=== PATIENT | male | born 1995 | race Caucasian/White ===

== ENCOUNTER 2018-03-07 21:46 | Emergency (ER) | payer SELFPAY ==
--- NOTE | 2018-03-07 23:10 | ER ---
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 Patient reports he was concerned because he has been having intermittent dizziness for the past month. Transition of care: patient was not received from another setting of care. Onset of symptoms was March 07, 2018. Risk Assessment: Do you want to hurt yourself or someone else? Patient reports no desire to harm self or others. Initial Sepsis Screen: Does the patient meet any 2 criteria? No. Patient's initial sepsis screen is negative. Does the patient have a suspected source of infection? No. Patient's initial sepsis screen is negative. Care prior to arrival: None. 21:52 Method Of Arrival: Ambulatory aj 21:52 Acuity: NEELIMA 3 aj Triage Assessment: 21:54 General: Appears in no apparent distress. comfortable, Behavior is calm, cooperative, aj appropriate for age. Pain: Denies pain. Neuro: Level of Consciousness is awake, alert, obeys commands, Oriented to person, place, time, situation, Appropriate for age. Neuro: Reports dizziness, intermittent. Respiratory: Airway is patent Trachea midline Respiratory effort is even, unlabored, Respiratory pattern is regular, symmetrical. Derm: Skin is intact, is healthy with good turgor, Skin is pink, warm \T\ dry. normal. Historical: - Allergies: 21:54 No Known Allergies; aj - Home Meds: 21:54 None [Active]; aj - PMHx: 21:54 Kidney stones; aj - PSHx: 21:54 None; aj - Immunization history:: Adult Immunizations up to date. - Social history:: Smoking status: Patient/guardian denies using tobacco. - Ebola Screening: : Patient negative for fever greater than or equal to 101.5 degrees Fahrenheit, and additional compatible Ebola Virus Disease symptoms Patient denies exposure to infectious person Patient denies travel to an Ebola-affected area in the 21 days before illness onset No symptoms or risks identified at this time. Screenin:08 Abuse screen: Denies threats or abuse. Denies injuries from another. Nutritional rv screening: No deficits noted. Tuberculosis screening: No symptoms or risk factors identified. Fall Risk None identified. Assessment: 22:08 General: Appears in no apparent distress. comfortable, Behavior is calm, cooperative. rv Pain: Denies pain. Neuro: Level of Consciousness is awake, alert, obeys commands, Oriented to person, place, time, situation. Cardiovascular: Capillary refill < 3 seconds. Respiratory: Airway is patent. GI: No signs and/or symptoms were reported involving the gastrointestinal system. : No signs and/or symptoms were reported regarding the genitourinary system. EENT: No signs and/or symptoms were reported regarding the EENT system. Derm: Skin is intact. 22:48 Reassessment: Patient appears in no apparent distress at this time. Patient is alert, rv oriented x 3, equal unlabored respirations, skin warm/dry/pink. PATIENT IS COMFORTABLE LYING ON BED. Vital Signs: 21:54 BP 159 / 101; Pulse 76; Resp 16; Temp 98.9; Pulse Ox 98% on R/A; Weight 79.38 kg; aj Height 5 ft. 1 in. (154.94 cm); 22:13 BP 145 / 85 Supine; Pulse 79; rv 22:13 BP 145 / 94 Sitting; Pulse 79; rv 22:13 BP 136 / 95 Standing; Pulse 86; rv 22:48 BP 121 / 86; Pulse 74; Pulse Ox 98% on R/A; rv 23:04 BP 137 / 101; rv 21:54 Body Mass Index 33.07 (79.38 kg, 154.94 cm) aj ED Course: 21:52 Patient arrived in ED. aj 21:54 Triage completed. aj 21:54 Arm band placed on left wrist. Patient placed in an exam room. aj 21:59 Elizabeth Solitario FNP-C is [facility]. snw 21:59 Brandon Lin MD is Attending Physician. snw 22:08 Patient has correct armband on for positive identification. Bed in low position. Call rv light in reach. Side rails up X 1. Adult w/ patient. Pulse ox on. NIBP on. 23:23 No provider procedures requiring assistance completed. Patient did not have IV access rv during this emergency room visit. Administered Medications: No medications were administered Outcome: 23:10 Discharge ordered by MD. stroud 23:23 Discharged to home ambulatory. rv 23:23 Condition: good 23:23 Discharge instructions given to patient, Instructed on discharge instructions, follow up and referral plans. 23:23 Patient left the ED. rv Signatures: Yoko Julien RN RN Elizabeth Franks, [employer]-C [employer]-Csnw Hemal Ortiz RN RN rv Corrections: (The following items were deleted from the chart) 22:02 21:54 BP 159 / 101; Pulse 76bpm; Resp 76bpm; Pulse Ox 98% RA; Temp 98.9F; 79.38 kg; aj Height 5 ft. 1 in.; BMI: 33.0; aj
--- NOTE | 2018-03-07 23:10 | EDPHYS ---
Physician Documentation [facility] Name: Darrick Alvarenga Age: 22 yrs Sex: Male : 1995 Arrival Date: 03/07/2018 Time: 21:52 Bed 23 Private MD: ED Physician Brandon Lin HPI: 03/08 01:05 This 22 yrs old Male presents to ER via Ambulatory with complaints of High snw Blood Pressure. 01:05 The patient has elevated blood pressure and discovered this at [facility]. Onset: The snw symptoms/episode began/occurred gradually, at an unknown time. Associated signs and symptoms: Pertinent positives: lightheadedness, intermittently. Severity of symptoms: At its worst the blood pressure was moderate. It is unknown whether or not the patient has had similar symptoms in the past. The patient has not recently seen a physician, and does not have an established primary care provider. encouraged to keep BP log, decrease salt, increase fluid intake. Historical: - Allergies: 03/07 21:54 No Known Allergies; aj - Home Meds: 21:54 None [Active]; aj - PMHx: 21:54 Kidney stones; aj - PSHx: 21:54 None; aj - Immunization history:: Adult Immunizations up to date. - Social history:: Smoking status: Patient/guardian denies using tobacco. - Ebola Screening: : Patient negative for fever greater than or equal to 101.5 degrees Fahrenheit, and additional compatible Ebola Virus Disease symptoms Patient denies exposure to infectious person Patient denies travel to an Ebola-affected area in the 21 days before illness onset No symptoms or risks identified at this time. ROS: 03/08 01:03 Constitutional: Negative for fever, chills, and weight loss, Eyes: Negative for injury, snw pain, redness, and discharge, ENT: Negative for injury, pain, and discharge, Neck: Negative for injury, pain, and swelling, Cardiovascular: Negative for chest pain, palpitations, and edema, Respiratory: Negative for shortness of breath, cough, wheezing, and pleuritic chest pain, Abdomen/GI: Negative for abdominal pain, nausea, vomiting, diarrhea, and constipation, Back: Negative for injury and pain, MS/Extremity: Negative for injury and deformity, Skin: Negative for injury, rash, and discoloration. Neuro: Positive for headache. Exam: 01:03 Constitutional: This is a well developed, well nourished patient who is awake, alert, snw and in no acute distress. Head/Face: Normocephalic, atraumatic. Eyes: Pupils equal round and reactive to light, extra-ocular motions intact. Lids and lashes normal. Conjunctiva and sclera are non-icteric and not injected. Cornea within normal limits. Periorbital areas with no swelling, redness, or edema. ENT: Nares patent. No nasal discharge, no septal abnormalities noted. Tympanic membranes are normal and external auditory canals are clear. Oropharynx with no redness, swelling, or masses, exudates, or evidence of obstruction, uvula midline. Mucous membranes moist. Neck: Trachea midline, no thyromegaly or masses palpated, and no cervical lymphadenopathy. Supple, full range of motion without nuchal rigidity, or vertebral point tenderness. No Meningismus. Chest/axilla: Normal chest wall appearance and motion. Nontender with no deformity. No lesions are appreciated. Cardiovascular: Regular rate and rhythm with a normal S1 and S2. No gallops, murmurs, or rubs. Normal PMI, no JVD. No pulse deficits. Respiratory: Lungs have equal breath sounds bilaterally, clear to auscultation and percussion. No rales, rhonchi or wheezes noted. No increased work of breathing, no retractions or nasal flaring. Abdomen/GI: Soft, non-tender, with normal bowel sounds. No distension or tympany. No guarding or rebound. No evidence of tenderness throughout. Back: No spinal tenderness. No costovertebral tenderness. Full range of motion. Skin: Warm, dry with normal turgor. Normal color with no rashes, no lesions, and no evidence of cellulitis. MS/ Extremity: Pulses equal, no cyanosis. Neurovascular intact. Full, normal range of motion. Neuro: Awake and alert, GCS 15, oriented to person, place, time, and situation. Cranial nerves II-XII grossly intact. Motor strength 5/5 in all extremities. Sensory grossly intact. Cerebellar exam normal. Normal gait. Vital Signs: 03/07 21:54 BP 159 / 101; Pulse 76; Resp 16; Temp 98.9; Pulse Ox 98% on R/A; Weight 79.38 kg; aj Height 5 ft. 1 in. (154.94 cm); 22:13 BP 145 / 85 Supine; Pulse 79; rv 22:13 BP 145 / 94 Sitting; Pulse 79; rv 22:13 BP 136 / 95 Standing; Pulse 86; rv 22:48 BP 121 / 86; Pulse 74; Pulse Ox 98% on R/A; rv 23:04 BP 137 / 101; rv 21:54 Body Mass Index 33.07 (79.38 kg, 154.94 cm) aj [facility]: 21:[address] [facility] 03/08 01:04 Data reviewed: vital signs, nurses notes. Data interpreted: Pulse oximetry: on room air snw is 98 %. Interpretation: normal. Counseling: I had a detailed discussion with the patient and/or guardian regarding: the historical points, exam findings, and any diagnostic results supporting the discharge/admit diagnosis, the presence of at least one elevated blood pressure reading (>120/80) during this emergency department visit, the need for outpatient follow up, to return to the emergency department if symptoms worsen or persist or if there are any questions or concerns that arise at home. Special discussion: I have referred the patient to see his PCP for further evaluation of high blood pressure. Based on the history and exam findings, there is no indication for further emergent testing or inpatient evaluation. I discussed with the patient/guardian the need to see the primary care provider for further evaluation of the symptoms. 03/07 22:00 Order name: Orthostatics; Complete Time: 22:13 snw Administered Medications: No medications were administered Disposition: 06:56 Co-signature as Attending Physician, Brandon Lin MD I agree with the assessment and [facility] plan of care. Disposition: 03/07/18 23:10 Discharged to Home. Impression: Essential (primary) hypertension. - Condition is Stable. - Discharge Instructions: Hypertension, How to Take Your Blood Pressure, [id number], DASH Eating Plan, Rehydration, Adult, Managing Your Hypertension. - Work release form, Medication Reconciliation Form, Thank You Letter, Antibiotic Education, Prescription Opioid Use form. - Follow up: Private Physician; When: 1 week; Reason: Recheck today's complaints, Continuance of care, Re-evaluation by your physician. Follow up: Emergency Department; When: As needed; Reason: Worsening of condition. Signatures: Yoko Julien RN RN aj Anderson, Corey, MD MD cha Therrien, Shelly, VETERINARY MEDICINE DOCTOR-C VETERINARY MEDICINE DOCTOR-Csnw Hemal Ortiz, RN RN rv Corrections: (The following items were deleted from the chart) 03/07 23:23 23:10 03/07/2018 23:10 Discharged to Home. Impression: Essential (primary) rv hypertension. Condition is Stable. Forms are Medication Reconciliation Form, Thank You Letter, Antibiotic Education, Prescription Opioid Use. Follow up: Private Physician; When: 1 week; Reason: Recheck today's complaints, Continuance of care, Re-evaluation by your physician. Follow up: Emergency Department; When: As needed; Reason: Worsening of condition. snw
== END 2018-03-07 23:23 | disposition home or self-care (01) ==
LOC: ER 21:46
DX: I10 Essential (primary) hypertension (principal)
CPT/HCPCS: 99283

== ENCOUNTER 2018-11-26 16:00 | Emergency (ER) | payer BC, SELFPAY ==
--- NOTE | 2018-11-26 17:26 | ER ---
Nurse's Notes [facility] Name: Darrick Alvarenga Age: 23 yrs Sex: Male : 1995 Arrival Date: 11/26/2018 Time: 16:06 Bed 30 Private MD: Diagnosis: Pain in right ankle and joints of right foot Presentation: 11/26 16:12 Presenting complaint: Patient states: R ankle pain that began yesterday. Denies injury. ss Pt believes he may have sprained it somehow. Transition of care: patient was not received from another setting of care. Onset of symptoms was November 25, 2018. Risk Assessment: Do you want to hurt yourself or someone else? Patient reports no desire to harm self or others. Initial Sepsis Screen: Does the patient meet any 2 criteria? No. Patient's initial sepsis screen is negative. Does the patient have a suspected source of infection? No. Patient's initial sepsis screen is negative. Care prior to arrival: None. 16:12 Method Of Arrival: Ambulatory ss 16:12 Acuity: NEELIMA 4 ss Historical: - Allergies: 16:13 No Known Allergies; ss - Home Meds: 16:13 None [Active]; ss - PMHx: 16:13 Kidney stones; ss - PSHx: 16:13 None; ss - Immunization history:: Adult Immunizations up to date. - Social history:: Smoking status: Patient/guardian denies using tobacco. - Ebola Screening: : Patient denies exposure to infectious person Patient denies travel to an Ebola-affected area in the 21 days before illness onset. Screenin:41 Abuse screen: Denies threats or abuse. Denies injuries from another. Nutritional mg2 screening: No deficits noted. Tuberculosis screening: No symptoms or risk factors identified. Fall Risk None identified. Assessment: 17:36 General: Appears in no apparent distress. comfortable, Behavior is calm, cooperative. mg2 Pain: Complains of pain in right ankle Pain does not radiate. Pain currently is 2 out of 10 on a pain scale. Quality of pain is described as aching, Pain began gradually, 1 day ago. Is intermittent, Alleviated by medications, rest, cold application, Aggravated by increased activity, repositioning, weight bearing. Neuro: Level of Consciousness is awake, alert, obeys commands, Oriented to person, place, time, situation. Cardiovascular: Capillary refill < 3 seconds Patient's skin is warm and dry. Respiratory: Airway is patent Respiratory effort is even, unlabored, Respiratory pattern is regular, symmetrical. GI: No signs and/or symptoms were reported involving the gastrointestinal system. : No signs and/or symptoms were reported regarding the genitourinary system. EENT: No signs and/or symptoms were reported regarding the EENT system. Derm: Skin is intact, is healthy with good turgor, Skin is pink, warm \T\ dry. normal. Musculoskeletal: Circulation, motion, and sensation intact. Capillary refill < 3 seconds, Reports pain in right leg and right ankle. Injury Description: sprain. Vital Signs: 16:13 BP 130 / 85; Pulse 90; Resp 15; Temp 99.0(TE); Pulse Ox 99% on R/A; Weight 81.65 kg; ss Height 5 ft. 7 in. (170.18 cm); Pain 2/10; 17:42 BP 129 / 78; Pulse 89; Resp 18; Temp 98.9; Pulse Ox 100% on R/A; Pain 2/10; mg2 16:13 Body Mass Index 28.19 (81.65 kg, 170.18 cm) ED Course: 16:06 Patient arrived in ED. mr 16:13 Triage completed. ss 16:13 Arm band placed on left wrist. ss 17:02 Shanel Bedoya [facility]-C [facility]. kb 17:02 Brandon Lin MD is Attending Physician. kb 17:23 Ankle Right 2 View XRAY In Process Unspecified. EDMS 17:25 Anthony Lazcano, MARIA ELENA is Primary Nurse. mg2 17:42 Patient has correct armband on for positive identification. Door closed. Warm blanket mg2 given. 17:42 No provider procedures requiring assistance completed. mg2 17:43 Patient did not have IV access during this emergency room visit. mg2 Administered Medications: No medications were administered Outcome: 17:25 Discharge ordered by . kb 17:42 Discharged to home ambulatory, with family. mg2 17:42 Condition: stable 17:42 Discharge instructions given to patient, family, Instructed on discharge instructions, follow up and referral plans. medication usage, Demonstrated understanding of instructions, follow-up care, medications, Prescriptions given X 1. 17:43 Patient left the ED. mg2 Signatures: Dispatcher [employer] EDMS Shanel Bedoya FNP-C LINE DRIVER-Ckb Zoraida Phillips mr Michelle Shaver, MARIA ELENA RN ss Anthony Lazcano RN RN mg2 Kirstie Hammond Corrections: (The following items were deleted from the chart) 17:25 17:25 Radiology exam delayed due to test not completed at this time. loretta burgos
--- NOTE | 2018-11-26 17:26 | EDPHYS ---
Physician Documentation [facility] Name: Darrick Alvarenga Age: 23 yrs Sex: Male : 1995 Arrival Date: 11/26/2018 Time: 16:06 Bed 30 Private MD: ED Physician Brandon Lin HPI: 11/26 17:10 This 23 yrs old Male presents to ER via Ambulatory with complaints of Ankle kb pain. 17:10 The patient presents with pain, that is acute, swelling. The complaints affect the kb right ankle. Onset: The symptoms/episode began/occurred yesterday. Context: The patient can fully bear weight on the affected extremity. the patient is able to ambulate. Associated signs and symptoms: Pertinent positives: swelling, Pertinent negatives: calf tenderness, fever, nausea, numbness, rash, tingling, vomiting, warmth, weakness. Modifying factors: The symptoms are alleviated by nothing, the symptoms are aggravated by nothing. Severity of symptoms: At their worst the symptoms were moderate, in the emergency department the symptoms are unchanged. The patient has not experienced similar symptoms in the past. The patient has not recently seen a physician. Pt reports he was at a [employer] on Monday, woke up on Monday with swelling to lateral right ankle. STates the swelling is better, but still having pain. Unknown injury. Historical: - Allergies: 16:13 No Known Allergies; ss - Home Meds: 16:13 None [Active]; ss - PMHx: 16:13 Kidney stones; ss - PSHx: 16:13 None; ss - Immunization history:: Adult Immunizations up to date. - Social history:: Smoking status: Patient/guardian denies using tobacco. - Ebola Screening: : Patient denies exposure to infectious person Patient denies travel to an Ebola-affected area in the 21 days before illness onset. ROS: 17:10 Constitutional: Negative for fever, chills, and weight loss, Cardiovascular: Negative kb for chest pain, palpitations, and edema, Respiratory: Negative for shortness of breath, cough, wheezing, and pleuritic chest pain, Abdomen/GI: Negative for abdominal pain, nausea, vomiting, diarrhea, and constipation, Skin: Negative for injury, rash, and discoloration, Neuro: Negative for headache, weakness, numbness, tingling, and seizure. 17:10 MS/extremity: Positive for pain, of the right ankle. Exam: 17:10 Constitutional: This is a well developed, well nourished patient who is awake, alert, kb and in no acute distress. Head/Face: Normocephalic, atraumatic. Chest/axilla: Normal chest wall appearance and motion. Nontender with no deformity. No lesions are appreciated. Cardiovascular: Regular rate and rhythm with a normal S1 and S2. No gallops, murmurs, or rubs. Normal PMI, no JVD. No pulse deficits. Respiratory: Lungs have equal breath sounds bilaterally, clear to auscultation and percussion. No rales, rhonchi or wheezes noted. No increased work of breathing, no retractions or nasal flaring. Abdomen/GI: Soft, non-tender, with normal bowel sounds. No distension or tympany. No guarding or rebound. No evidence of tenderness throughout. Skin: Warm, dry with normal turgor. Normal color with no rashes, no lesions, and no evidence of cellulitis. MS/ Extremity: Pulses equal, no cyanosis. Neurovascular intact. Full, normal range of motion. Neuro: Awake and alert, GCS 15, oriented to person, place, time, and situation. Cranial nerves II-XII grossly intact. Motor strength 5/5 in all extremities. Sensory grossly intact. Cerebellar exam normal. Normal gait. Vital Signs: 16:13 BP 130 / 85; Pulse 90; Resp 15; Temp 99.0(TE); Pulse Ox 99% on R/A; Weight 81.65 kg; ss Height 5 ft. 7 in. (170.18 cm); Pain 2/10; 17:42 BP 129 / 78; Pulse 89; Resp 18; Temp 98.9; Pulse Ox 100% on R/A; Pain 2/10; mg2 16:13 Body Mass Index 28.19 (81.65 kg, 170.18 cm) ss MDM: 17:02 Patient medically screened. kb 17:06 Data reviewed: vital signs, nurses notes. Data interpreted: Pulse oximetry: on room air kb is 99 %. Interpretation: normal. 17:10 Counseling: I had a detailed discussion with the patient and/or guardian regarding: the kb historical points, exam findings, and any diagnostic results supporting the discharge/admit diagnosis, radiology results, the need for outpatient follow up, a orthopedic surgeon, to return to the emergency department if symptoms worsen or persist or if there are any questions or concerns that arise at home. 11/26 17:03 Order name: Ankle Right 2 View XRAY; Complete Time: 09:55 kb Administered Medications: No medications were administered Disposition: 11/27 07:03 Co-signature as Attending Physician, Brandon Lin MD I agree with the assessment and carmel plan of care. Disposition: 11/26/18 17:25 Discharged to Home. Impression: Pain in right ankle and joints of right foot. - Condition is Stable. - Discharge Instructions: Ankle Sprain, [id number]. - Prescriptions for Diclofenac Sodium 75 mg Oral Tablet, Delayed Release (E.C.) - take 1 tablet by ORAL route 2 times per day As needed; 30 tablet. - Work release form, Medication Reconciliation Form, Thank You Letter, Antibiotic Education, Prescription Opioid Use form. - Follow up: Emergency Department; When: As needed; Reason: Worsening of condition. Follow up: Private Physician; When: 2 - 3 days; Reason: Recheck today's complaints, Continuance of care, Re-evaluation by your physician. Signatures: Dispatcher [employer] EDMS Shanel Bedoya, SPLICING TECHNICIAN-C SPLICING TECHNICIAN-Brandon Martinez MD MD cha Smirch, Shelby, RN RN Anthony Lazcano RN RN mg2 Corrections: (The following items were deleted from the chart) 11/26 17:43 17:25 11/26/2018 17:25 Discharged to Home. Impression: Pain in right ankle and joints mg2 of right foot. Condition is Stable. Forms are Medication Reconciliation Form, Thank You Letter, Antibiotic Education, Prescription Opioid Use. Follow up: Emergency Department; When: As needed; Reason: Worsening of condition. Follow up: Private Physician; When: 2 - 3 days; Reason: Recheck today's complaints, Continuance of care, Re-evaluation by your physician. kb
--- NOTE | 2018-11-26 17:32 | RAD REPORT ---
EXAM DESCRIPTION: RAD - Ankle Right 2 View - 11/26/2018 5:23 pm CLINICAL HISTORY: Right ankle pain, twisting injury COMPARISON: None. FINDINGS: No fracture, dislocation or periosteal reaction. No joint effusion seen. No joint space na rrowing. No soft tissue abnormality. IMPRESSION: Negative right ankle
== END 2018-11-26 17:43 | disposition home or self-care (01) ==
LOC: ER 16:00
DX: M25.571 Pain in right ankle and joints of right foot (principal)
CPT/HCPCS: 99283

== ENCOUNTER 2019-05-02 21:00 | Emergency (ER) | payer BC, SELFPAY ==
[2019-05-02] MEDS ORDERED: PROMETHAZINE 25 MG/ML VIAL ONE (21:47)
[2019-05-02] MEDS ORDERED: NA CHLORIDE 0.9% 1,000 ML ONE ×2 (21:47→22:27)
[2019-05-02 21:52] LABS: Absolute Lymphocytes (CBC) 0.4 K/uL (0.7-4.9); Basophils % 0.2 % (0-1.3); Hematocrit 44.6 % (39.6-49.0); Lymphocytes % 2.8 % (15.3-44.8); RBC Red Blood Cell Count 4.84 M/uL (4.33-5.43)
[2019-05-02 21:57] LABS: Potassium 3.7 mmol/L (3.5-5.1)
[2019-05-02 22:40] LABS: Urine Blood TRACE (NEG); Urine Glucose NEGATIVE (NEG); Urine Protein TRACE (NEG); Urine Specific Gravity >1.030 (1.005-1.030); Urine pH 5.5 (5.0-7.0)
--- NOTE | 2019-05-02 23:23 | EDPHYS ---
Physician Documentation [facility] Name: Darrick Alvarenga Age: 24 yrs Sex: Male : 1995 Arrival Date: 05/02/2019 Time: 21:03 Bed 26 Private MD: ED Physician Jerome Tucker HPI: 05/02 21:18 This 24 yrs old Male presents to ER via Ambulatory with complaints of snw Nausea/Vomiting, Dizziness. 21:18 The patient presents to the emergency department with nausea, vomiting, 40 times today. snw Onset: The symptoms/episode began/occurred suddenly, at 10:00. Possible causes: sick contacts, by family, children. Associated signs and symptoms: Pertinent positives: nausea, vomiting, Pertinent negatives: diarrhea, dysuria, fever. Severity of symptoms: At their worst the symptoms were moderate severe in the emergency department the symptoms have improved. The patient has not experienced similar symptoms in the past. The patient has not recently seen a physician. pt was at work and began vomiting. Children had a 24 hour virus and are doing well.. Historical: - Allergies: 21:09 No Known Allergies; mg2 - Home Meds: 21:09 clorotabs [Active]; mg2 - PMHx: 21:09 Kidney stones; mg2 - PSHx: 21:09 hand sx; mg2 - Immunization history:: Flu vaccine is not up to date. - Social history:: Smoking status: Patient/guardian denies using tobacco, Patient/guardian denies using alcohol, street drugs, IV drugs. - Ebola Screening: : No symptoms or risks identified at this time. ROS: 21:17 Constitutional: Negative for fever, chills, and weight loss, Eyes: Negative for injury, snw pain, redness, and discharge, ENT: Negative for injury, pain, and discharge, Neck: Negative for injury, pain, and swelling, Cardiovascular: Negative for chest pain, palpitations, and edema, Respiratory: Negative for shortness of breath, cough, wheezing, and pleuritic chest pain, Back: Negative for injury and pain, : Negative for injury, bleeding, discharge, and swelling, MS/Extremity: Negative for injury and deformity, Skin: Negative for injury, rash, and discoloration, Neuro: Negative for headache, weakness, numbness, tingling, and seizure, Psych: Negative for depression, anxiety, suicide ideation, homicidal ideation, and hallucinations. 21:17 Abdomen/GI: Positive for nausea and vomiting. Exam: 21:17 Constitutional: This is a well developed, well nourished patient who is awake, alert, snw and in no acute distress. Head/Face: Normocephalic, atraumatic. Eyes: Pupils equal round and reactive to light, extra-ocular motions intact. Lids and lashes normal. Conjunctiva and sclera are non-icteric and not injected. Cornea within normal limits. Periorbital areas with no swelling, redness, or edema. ENT: Nares patent. No nasal discharge, no septal abnormalities noted. Tympanic membranes are normal and external auditory canals are clear. Oropharynx with no redness, swelling, or masses, exudates, or evidence of obstruction, uvula midline. Mucous membranes moist. Neck: Trachea midline, no thyromegaly or masses palpated, and no cervical lymphadenopathy. Supple, full range of motion without nuchal rigidity, or vertebral point tenderness. No Meningismus. Chest/axilla: Normal chest wall appearance and motion. Nontender with no deformity. No lesions are appreciated. Cardiovascular: Regular rate and rhythm with a normal S1 and S2. No gallops, murmurs, or rubs. Normal PMI, no JVD. No pulse deficits. Respiratory: Lungs have equal breath sounds bilaterally, clear to auscultation and percussion. No rales, rhonchi or wheezes noted. No increased work of breathing, no retractions or nasal flaring. Back: No spinal tenderness. No costovertebral tenderness. Full range of motion. Skin: Warm, dry with normal turgor. Normal color with no rashes, no lesions, and no evidence of cellulitis. MS/ Extremity: Pulses equal, no cyanosis. Neurovascular intact. Full, normal range of motion. Neuro: Awake and alert, GCS 15, oriented to person, place, time, and situation. Cranial nerves II-XII grossly intact. Motor strength 5/5 in all extremities. Sensory grossly intact. Cerebellar exam normal. Normal gait. Psych: Awake, alert, with orientation to person, place and time. Behavior, mood, and affect are within normal limits. 21:17 Abdomen/GI: Inspection: abdomen appears normal, Bowel sounds: normal, Palpation: abdomen is soft and non-tender, in all quadrants. Vital Signs: 21:07 BP 132 / 80; Pulse 123; Resp 18; Temp 99.4; Pulse Ox 100% on R/A; Weight 86.18 kg; mg2 Height 5 ft. 7 in. (170.18 cm); Pain 5/10; 22:24 BP 122 / 74; Pulse 96; Resp 17; Pulse Ox 100% on R/A; tr5 23:00 BP 124 / 75; Pulse 86; Resp 15; Pulse Ox 100% on R/A; jb4 21:07 Body Mass Index 29.76 (86.18 kg, 170.18 cm) mg2 MDM: 21:13 Patient medically screened. snw 22:34 Data reviewed: vital signs, nurses notes. Data interpreted: Pulse oximetry: on room air snw is 100 %. Interpretation: normal. Transition of care: After a detail discussion of the patient's case, care is transferred to Jerome Tucker MD. 23:22 Differential diagnosis: Nonspecific abd pain, appendicitis, diverticulitis, viral rn gastroenteritis, gastroenteritis. Counseling: I had a detailed discussion with the patient and/or guardian regarding: the historical points, exam findings, and any diagnostic results supporting the discharge/admit diagnosis, lab results, radiology results, the need for outpatient follow up, to return to the emergency department if symptoms worsen or persist or if there are any questions or concerns that arise at home. Special discussion: Based on the patient's Hx, exam, and Dx evaluation, there is no indication for emergent surgery or inpatient Tx. It is understood by the patient/guardian that if the Sx's persist or worsen they need to return immediately for re-evaluation. I discussed with the patient/guardian in detail that at this point there is no indication for admission to the hospital. It is understood, however, that if the symptoms persist or worsen the patient needs to return immediately for re-evaluation. 05/02 21:11 Order name: Flu; Complete Time: 22:13 snw 05/02 21:11 Order name: Strep; Complete Time: 22:13 snw 05/02 21:11 Order name: CBC with Diff snw 05/02 21:11 Order name: Chem 7; Complete Time: 22:13 snw 05/02 21:11 Order name: Lipase; Complete Time: 22:13 snw 05/02 22:03 Order name: Throat Culture EDMN 05/02 21:17 Order name: Urine Dipstick-Ancillary (obtain specimen); Complete Time: 22:32 snw 05/02 22:13 Order name: Recheck Vital Signs; Complete Time: 22:28 snw 05/02 22:20 Order name: CT Abd/Pelvis - IV Contrast Only w 05/02 22:37 Order name: Urine Dipstick--Ancillary (enter results) em1 05/03 00:28 Order name: CBC Smear Scan EDMS Administered Medications: 21:54 Drug: NS 0.9% 1000 ml Route: IV; Rate: 1 bolus; Site: left antecubital; tr5 05/03 00:23 Follow up: IV Status: Completed infusion; IV Intake: 1000ml tr5 05/02 21:54 Drug: Phenergan 12.5 mg Route: IVP; Site: left antecubital; tr5 05/03 00:23 Follow up: Response: Nausea is decreased tr5 05/02 22:51 Drug: NS 0.9% 1000 ml Route: IV; Rate: 1 bolus; Site: right antecubital; tr5 05/03 00:23 Follow up: IV Status: Completed infusion; IV Intake: 1000ml tr5 Disposition: 01:14 Co-signature as Attending Physician, Jerome Tucker MD. rn Disposition: 05/02/19 23:23 Discharged to Home. Impression: Lower abdominal pain, unspecified, Vomiting, unspecified. - Condition is Stable. - Discharge Instructions: Abdominal Pain, Adult, Viral Gastroenteritis, Adult. - Prescriptions for Zofran ODT 4 mg Oral tablet,disintegrating - place 1 tablet by TRANSLINGUAL route every 8 hours As needed; 20 tablet. - Medication Reconciliation Form, Thank You Letter, Antibiotic Education, Prescription Opioid Use form. - Follow up: Private Physician; When: As needed; Reason: Recheck today's complaints, Re-evaluation by your physician. - Problem is new. - Symptoms have improved. Signatures: Dispatcher [employer] EDMN Elizabeth Solitario, WOOD TECHNOLOGIST-C WOOD TECHNOLOGIST-Csnw Jerome Tucker MD MD rn Gardose, Michele, Donaldo Ortiz RN, RN RN tr5 Corrections: (The following items were deleted from the chart) 00:36 05/02 23:23 05/02/2019 23:23 Discharged to Home. Impression: Lower abdominal pain, tr5 unspecified; Vomiting, unspecified. Condition is Stable. Forms are Medication Reconciliation Form, Thank You Letter, Antibiotic Education, Prescription Opioid Use. Follow up: Private Physician; When: As needed; Reason: Recheck today's complaints, Re-evaluation by your physician. Problem is new. Symptoms have improved. rn
--- NOTE | 2019-05-02 23:23 | ER ---
Nurse's Notes [facility] Name: Darrick Alvarenga Age: 24 yrs Sex: Male : 1995 Arrival Date: 05/02/2019 Time: 21:03 Bed 26 Private MD: Diagnosis: Lower abdominal pain, unspecified;Vomiting, unspecified Presentation: 05/02 21:06 Presenting complaint: Patient states: i started vomiting 10 am today, body aches, mg2 chills and dizziness, mild pain in my stomach. Transition of care: patient was not received from another setting of care. Onset of symptoms was May 02, 2019. Risk Assessment: Do you want to hurt yourself or someone else? Patient reports no desire to harm self or others. Initial Sepsis Screen: Does the patient meet any 2 criteria? No. Patient's initial sepsis screen is negative. Does the patient have a suspected source of infection? No. Patient's initial sepsis screen is negative. Care prior to arrival: None. 21:06 Method Of Arrival: Ambulatory mg2 21:06 Acuity: NEELIMA 3 mg2 Historical: - Allergies: 21:09 No Known Allergies; mg2 - Home Meds: 21:09 clorotabs [Active]; mg2 - PMHx: 21:09 Kidney stones; mg2 - PSHx: 21:09 hand sx; mg2 - Immunization history:: Flu vaccine is not up to date. - Social history:: Smoking status: Patient/guardian denies using tobacco, Patient/guardian denies using alcohol, street drugs, IV drugs. - Ebola Screening: : No symptoms or risks identified at this time. Screenin:09 Abuse screen: Denies threats or abuse. Denies injuries from another. Nutritional mg2 screening: No deficits noted. Tuberculosis screening: No symptoms or risk factors identified. 05/03 00:22 Fall Risk None identified. tr5 Assessment: 05/02 21:10 General: Appears uncomfortable, Behavior is calm, cooperative, appropriate for age. tr5 Pain: Complains of pain in right leg and left leg. Neuro: Level of Consciousness is awake, alert, obeys commands, Oriented to person, place, time, Center Lead Consultant are equal bilaterally Moves all extremities. Reports dizziness. Cardiovascular: Heart tones present Capillary refill < 3 seconds Pulses are all present. Edema is absent. Respiratory: Airway is patent Respiratory effort is even, unlabored, Respiratory pattern is regular, symmetrical. GI: Reports nausea, vomiting. GI: Abdomen is round Bowel sounds present X 4 quads. : No signs and/or symptoms were reported regarding the genitourinary system. EENT: No signs and/or symptoms were reported regarding the EENT system. Derm: No signs and/or symptoms reported regarding the dermatologic system. Musculoskeletal: No signs and/or symptoms reported regarding the musculoskeletal system. 22:24 Reassessment: Patient appears in no apparent distress at this time. Patient and/or tr5 family updated on plan of care and expected duration. Pain level reassessed. Patient is alert, oriented x 3, equal unlabored respirations, skin warm/dry/pink. 23:30 Reassessment: Patient appears in no apparent distress at this time. No changes from jb4 previously documented assessment. Patient and/or family updated on plan of care and expected duration. Pain level reassessed. Patient is alert, oriented x 3, equal unlabored respirations, skin warm/dry/pink. Vital Signs: 21:07 BP 132 / 80; Pulse 123; Resp 18; Temp 99.4; Pulse Ox 100% on R/A; Weight 86.18 kg; mg2 Height 5 ft. 7 in. (170.18 cm); Pain 5/10; 22:24 BP 122 / 74; Pulse 96; Resp 17; Pulse Ox 100% on R/A; tr5 23:00 BP 124 / 75; Pulse 86; Resp 15; Pulse Ox 100% on R/A; jb4 21:07 Body Mass Index 29.76 (86.18 kg, 170.18 cm) mg2 ED Course: 21:03 Patient arrived in ED. ds1 21:07 Triage completed. mg2 21:09 Arm band placed on left wrist. mg2 21:11 Elizabeth Solitario [facility]-C [facility] snw 21:11 Jerome Tucker MD is Attending Physician. snw 21:25 Initial lab(s) drawn, by me, sent to lab. Inserted saline lock: 20 gauge in left tr5 antecubital area, using aseptic technique. 21:39 Donaldo Urena, MARIA ELENA is Primary Nurse. tr5 22:28 Bed in low position. Call light in reach. Side rails up X 1. Warm blanket given. Pillow jp3 given. Verbal reassurance given. Pulse ox on. NIBP on. 22:53 CT Abd/Pelvis - IV Contrast Only In Process Unspecified. EDMS 05/03 00:22 No provider procedures requiring assistance completed. IV discontinued. tr5 Administered Medications: 05/02 21:54 Drug: NS 0.9% 1000 ml Route: IV; Rate: 1 bolus; Site: left antecubital; tr5 05/03 00:23 Follow up: IV Status: Completed infusion; IV Intake: 1000ml tr5 05/02 21:54 Drug: Phenergan 12.5 mg Route: IVP; Site: left antecubital; tr5 05/03 00:23 Follow up: Response: Nausea is decreased tr5 05/02 22:51 Drug: NS 0.9% 1000 ml Route: IV; Rate: 1 bolus; Site: right antecubital; tr5 05/03 00:23 Follow up: IV Status: Completed infusion; IV Intake: 1000ml tr5 Intake: 00:23 IV: 1000ml; Total: 1000ml. tr5 00:23 IV: 1000ml; Total: 2000ml. tr5 Outcome: 05/02 23:23 Discharge ordered by . rn 05/03 00:22 Discharged to home ambulatory. tr5 Condition: stable Discharge instructions given to patient, Instructed on discharge instructions, follow up and referral plans. medication usage, Demonstrated understanding of instructions, follow-up care, medications, Prescriptions given X 1. 00:36 Patient left the ED. tr5 Signatures: Dispatcher [employer] EDLA Elizabeth Solitario, CITY MAIL CARRIER-C CITY MAIL CARRIER-Csnw Joselin Hand ds1 Jerome Tucker MD MD rn Bryson, James, RN RN jb4 Anthony Lazcano RN RN mg2 Armando Hadley jp3 Donaldo Urena RN RN tr5
[2019-05-03 00:28] LABS: Blood Morphology Comment NOT SEEN (NOT SEEN); Platelet Estimate ADEQ; Urine White Blood Cell Casts OK
[2019-05-03 00:42] VITALS: TEMP 99.4; O2SAT 100
[2019-05-03 00:44] VITALS: BP 124/75
--- NOTE | 2019-05-06 12:35 | RAD REPORT ---
EXAM DESCRIPTION: CT - Abdomen Pelvis W Contrast - 05/03/2019 12:38 am CLINICAL HISTORY: 24 years Male ABD PAIN COMPARISON: May 09, 2017. TECHNIQUE: Images were obtained in axial, sagittal, and coronal planes. Intravenous contrast was adm inistered. This exam was performed according to our departmental dose-optimization program which includes use of Automated Exposure Control, adjustment of the mA and/or kV according to patient size and/or use of i terative reconstruction technique. FINDINGS: Appendix within normal limits. No bowel obstruction, perforation, or inflammation. Enlarged left lobe of liver. Spleen is prominent in size measuring 12.8 cm in greatest dimension. Unr emarkable pancreas, gallbladder, and adrenal glands bilaterally. No obstructing renal calcifications bilaterally. No hydronephrosis bilaterally. Unremarkable bladder. Abnormality abdominal aorta or portal vein. No adenopathy or abnormal fluid collections seen. No abnormality lower lungs bilaterally. No acute osseous abnormality. IMPRESSION: No acute intra-abdominal abnormality. Electronically signed by: Bethanie Jackman MD 05/02/2019 11:14 PM CDT Due to temporary technical issues with the PACS/Fluency reporting system, reports are being signed by the in house radiologist as a courtesy to ensure prompt reporting. The interpreting radiologist is f ully responsible for the content of the report.
== END 2019-05-03 00:36 | disposition home or self-care (01) ==
LOC: ER 21:00
DX: R11.2 Nausea with vomiting, unspecified (principal); Z87.442 Personal history of urinary calculi
CPT/HCPCS: 36415; 74177; 80048; 81003; 83690; 85025; 87070; 87081; 87804; 96361; 96374; 99284; J2550; J7030; Q9967

== ENCOUNTER 2020-11-07 09:33 | Emergency (ER) | payer SELFPAY ==
[2020-11-07] MEDS ORDERED: TETRACAINE HCL 0.5% 4ML OPTH ONE (10:05)
[2020-11-07] MEDS ORDERED: FLUORESCEIN SODIUM 1 MG/WRAP ONE (10:05)
[2020-11-07] MEDS ORDERED: TOBRAMYCIN SULF 0.3% OPTH OINT ONE (10:15)
[2020-11-07] MEDS ORDERED: TETANUS & DIPHTHERIA TOX,ADULT 0.5 ML VIAL ONE (10:15)
[2020-11-07] MEDS ORDERED: TOBRAMYCIN SULF 0.3% OPTH OINT OPTH ONE (10:30)
--- NOTE | 2020-11-07 11:07 | ER ---
Nurse's Notes [facility] Name: Darrick Alvarenga Age: 25 yrs Sex: Male : 1995 Arrival Date: 11/07/2020 Time: 09:36 Bed 8 Private MD: Diagnosis: Injury of conjunctiva and corneal abrasion without foreign body;Injury of conjunctiva and corneal abrasion without foreign body, left eye Presentation: 11/07 09:44 Chief complaint: Patient states: Grinding some metal last night and got some in his jl7 left eye. Coronavirus screen: Client denies travel out of the [place] in the last 14 days. At this time, the client does not indicate any symptoms associated with coronavirus-19. Ebola Screen: No symptoms or risks identified at this time. Initial Sepsis Screen: Does the patient meet any 2 criteria? No. Patient's initial sepsis screen is negative. Does the patient have a suspected source of infection? No. Patient's initial sepsis screen is negative. Risk Assessment: Do you want to hurt yourself or someone else? Patient reports no desire to harm self or others. Onset of symptoms was November 06, 2020. Care prior to arrival: None. 09:44 Method Of Arrival: Ambulatory 7 09:44 Acuity: NEELIMA 4 jl7 Triage Assessment: 09:51 General: Appears in no apparent distress. uncomfortable, Behavior is calm, cooperative, jl7 appropriate for age. Pain: Complains of pain in left eye Pain currently is 10 out of 10 on a pain scale. EENT: Eyes are tearing on left eye Sclera/Cornea are reddened in left eye. Neuro: Level of Consciousness is awake, alert, obeys commands, Oriented to person, place, time, situation. Cardiovascular: Patient's skin is warm and dry. Respiratory: Airway is patent Respiratory effort is even, unlabored, Respiratory pattern is regular, symmetrical. Derm: Skin is pink, warm \T\ dry. Historical: - Allergies: 09:51 No Known Allergies; jl7 - Home Meds: 09:51 None [Active]; jl7 - PMHx: 09:51 Kidney stones; jl7 - PSHx: 09:51 None; jl7 - Immunization history:: Adult Immunizations not up to date. - Social history:: Smoking status: Patient denies any tobacco usage or history of. Screenin:54 Abuse screen: Denies threats or abuse. Denies injuries from another. Nutritional jl7 screening: No deficits noted. Tuberculosis screening: No symptoms or risk factors identified. Fall Risk None identified. Assessment: 09:54 General: See triage assessment. jl7 Vital Signs: 09:44 BP 144 / 93; Pulse 71; Resp 17; Temp 97.8; Pulse Ox 97% ; Weight 86.18 kg; Height 5 ft. jl7 7 in. (170.18 cm); Pain 10/10; 09:44 Body Mass Index 29.76 (86.18 kg, 170.18 cm) jl7 ED Course: 09:36 Patient arrived in ED. am2 09:39 Junie Aceves, MARIA ELENA is Primary Nurse. 7 09:42 Brandon Lin MD is Attending Physician. [facility] 09:51 Triage completed. 7 09:51 Arm band placed on right wrist. 7 09:54 Patient has correct armband on for positive identification. Bed in low position. Call jl7 light in reach. Side rails up X 1. Pulse ox on. NIBP on. 11:00 No provider procedures requiring assistance completed. Patient did not have IV access jl7 during this emergency room visit. 11:05 Simone Ni MD is Referral Physician. 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 Exp: jl7 11/07/2021. Lot #: [id number]. } Route: IM; Site: right deltoid; 10:15 Follow up: Response: No adverse reaction jl 10:45 Drug: Tetracaine Drops 0.5 % 1 drops {Note: administered by Dr. Lin.} Route: jl7 Ophthalmic; Site: left eye; 10:45 Follow up: Response: No adverse reaction 7 10:45 Drug: Tobramycin Ointment (0.3 %) 1 application {Note: administered by Dr. Lin.} jl7 Route: Ophthalmic; Site: left eye; 11:00 Follow up: Response: No adverse reaction jl7 Outcome: 11:06 Discharge ordered by . [facility] 12:00 Discharged to home ambulatory. jl7 12:00 Condition: stable 12:00 Discharge instructions given to patient, family, Instructed on discharge instructions, follow up and referral plans. Demonstrated understanding of instructions, follow-up care. 12:24 Patient left the ED. aa5 Signatures: Brandon Lin MD MD cha Calderon, Audri RN RN aa5 Junie Aceves RN RN jl7 Yoko Harrell am2 Corrections: (The following items were deleted from the chart) 09:54 09:51 Arm band placed on jl7 jl7
--- NOTE | 2020-11-07 11:07 | EDPHYS ---
Physician Documentation [facility] Name: Darrick Alvarenga Age: 25 yrs Sex: Male : 1995 Arrival Date: 11/07/2020 Time: 09:36 Bed 8 Private MD: ED Physician Brandon Lin HPI: 11/07 09:53 This 25 yrs old Male presents to ER via Ambulatory with complaints of Foreign carmel Body In Eye - left. Historical: - Allergies: 09:51 No Known Allergies; jl7 - Home Meds: 09:51 None [Active]; jl7 - PMHx: 09:51 Kidney stones; jl7 - PSHx: 09:51 None; jl7 - Immunization history:: Adult Immunizations not up to date. - Social history:: Smoking status: Patient denies any tobacco usage or history of. ROS: 11:00 Constitutional: Negative for fever, chills, and weight loss, ENT: Negative for injury, carmel pain, and discharge, Neck: Negative for injury, pain, and swelling, Cardiovascular: Negative for chest pain, palpitations, and edema, Respiratory: Negative for shortness of breath, cough, wheezing, and pleuritic chest pain, Abdomen/GI: Negative for abdominal pain, nausea, vomiting, diarrhea, and constipation, Back: Negative for injury and pain, : Negative for injury, bleeding, discharge, and swelling, MS/Extremity: Negative for injury and deformity, Skin: Negative for injury, rash, and discoloration, Neuro: Negative for headache, weakness, numbness, tingling, and seizure, Psych: Negative for depression, anxiety, suicide ideation, homicidal ideation, and hallucinations, Allergy/Immunology: Negative for hives, rash, and allergies, Endocrine: Negative for neck swelling, polydipsia, polyuria, polyphagia, and marked weight changes, Hematologic/Lymphatic: Negative for swollen nodes, abnormal bleeding, and unusual bruising. 11:00 Eyes: Positive for foreign body sensation, pain, photophobia, redness, of the iris of left eye. Exam: 11:00 Visual Acuity: I have reviewed the nursing documentation. carmel 11:00 Constitutional: This is a well developed, well nourished patient who is awake, alert, and in no acute distress. Head/Face: Normocephalic, atraumatic. ENT: Nares patent. No nasal discharge, no septal abnormalities noted. Tympanic membranes are normal and external auditory canals are clear. Oropharynx with no redness, swelling, or masses, exudates, or evidence of obstruction, uvula midline. Mucous membranes moist. Neck: Trachea midline, no thyromegaly or masses palpated, and no cervical lymphadenopathy. Supple, full range of motion without nuchal rigidity, or vertebral point tenderness. No Meningismus. Chest/axilla: Normal chest wall appearance and motion. Nontender with no deformity. No lesions are appreciated. Cardiovascular: Regular rate and rhythm with a normal S1 and S2. No gallops, murmurs, or rubs. Normal PMI, no JVD. No pulse deficits. Respiratory: Lungs have equal breath sounds bilaterally, clear to auscultation and percussion. No rales, rhonchi or wheezes noted. No increased work of breathing, no retractions or nasal flaring. Abdomen/GI: Soft, non-tender, with normal bowel sounds. No distension or tympany. No guarding or rebound. No evidence of tenderness throughout. Back: No spinal tenderness. No costovertebral tenderness. Full range of motion. Male : Normal genitalia with no discharge or lesions. Skin: Warm, dry with normal turgor. Normal color with no rashes, no lesions, and no evidence of cellulitis. MS/ Extremity: Pulses equal, no cyanosis. Neurovascular intact. Full, normal range of motion. Neuro: Awake and alert, GCS 15, oriented to person, place, time, and situation. Cranial nerves II-XII grossly intact. Motor strength 5/5 in all extremities. Sensory grossly intact. Cerebellar exam normal. Normal gait. Psych: Awake, alert, with orientation to person, place and time. Behavior, mood, and affect are within normal limits. 11:00 Eyes: Periorbital structures: appear normal, no acute changes, no abrasion, no cellulitis, no contusion, no ecchymosis, no erythema, no laceration, no swelling, Pupils: equal, round, and reactive to light and accomodation, Extraocular movements: intact throughout, Conjunctiva: normal, no acute changes, Corneas: foreign body, on the left, at 3 o'clock, Sclera: Anterior chamber: normal, no acute changes, Lids and lashes: appear normal, no acute changes, Visual stallings: are intact, no acute changes, Nystagmus: is not appreciated, no acute changes. Vital Signs: 09:44 BP 144 / 93; Pulse 71; Resp 17; Temp 97.8; Pulse Ox 97% ; Weight 86.18 kg; Height 5 ft. jl7 7 in. (170.18 cm); Pain 10/10; 09:44 Body Mass Index 29.76 (86.18 kg, 170.18 cm) [facility] Procedures: 11:00 Foreign Body Removal: a metal shaving. [facility] 11:04 Foreign Body Removal: from the left by normal saline irrigation, NEEDLE OF 25 GAUGE, TO [facility] REMOVE. Dressing: none, The patient tolerated the removal well. MDM: 09:42 Patient medically screened. [facility] 11:00 Differential diagnosis: Corneal abrasion of left eye. Foreign body in. Data reviewed: [facility] vital signs, nurses notes. 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 Pulse oximetry: is not applicable for this patient encounter. on room air is 97 %. Counseling: I had a detailed discussion with the patient and/or guardian regarding: the historical points, exam findings, and any diagnostic results supporting the discharge/admit diagnosis, the need for outpatient follow up, for definitive care, an opthalmologist. 11/07 09:50 Order name: Eye Tray; Complete Time: 09:55 [facility] 11/07 09:50 Order name: Fluoresene Opth strip; Complete Time: 09:55 [facility] Administered Medications: 10:00 Drug: Tetanus-Diphtheria Toxoid Adult 0.5 ml {[facility]: [employer]an[employer]. Exp: jl7 11/07/2021. Lot #: [id number]. } Route: IM; Site: right deltoid; 10:15 Follow up: Response: No adverse reaction [facility] 10:45 Drug: Tetracaine Drops 0.5 % 1 drops {Note: administered by Dr. Lin.} Route: jl7 Ophthalmic; Site: left eye; 10:45 Follow up: Response: No adverse reaction [facility] 10:45 Drug: Tobramycin Ointment (0.3 %) 1 application {Note: administered by Dr. Lin.} jlDeonte Route: Ophthalmic; Site: left eye; 11:00 Follow up: Response: No adverse reaction 7 Disposition: 11/07/20 11:06 Discharged to Home. Impression: Injury of conjunctiva and corneal abrasion without foreign body, Injury of conjunctiva and corneal abrasion without foreign body, left eye. - Condition is Stable. - Discharge Instructions: Corneal Abrasion, Corneal Abrasion, [id number]. - Medication Reconciliation Form, Thank You Letter, Antibiotic Education, Prescription Opioid Use form. - Follow up: Simone Ni MD; When: Upon discharge from the Emergency Department; Reason: Recheck today's complaints, Re-evaluation by your physician. - Problem is new. - Symptoms have improved. Signatures: Brandon Lin MD MD cha Calderon, Audri, RN RN aa5 Junie Aceves RN RN jl7 Corrections: (The following items were deleted from the chart) 12:24 11:06 11/07/2020 11:06 Discharged to Home. Impression: Injury of conjunctiva and aa5 corneal abrasion without foreign body; Injury of conjunctiva and corneal abrasion without foreign body, left eye. Condition is Stable. Forms are Medication Reconciliation Form, Thank You Letter, Antibiotic Education, Prescription Opioid Use. Follow up: Simone Ni; When: Upon discharge from the Emergency Department; Reason: Recheck today's complaints, Re-evaluation by your physician. Problem is new. Symptoms have improved. carmel
[2020-11-07 12:33] VITALS: BP 144/93; TEMP 97.8; O2SAT 97
== END 2020-11-07 12:24 | disposition home or self-care (01) ==
LOC: ER 09:33
DX: T15.02XA Foreign body in cornea, left eye, initial encounter (principal); Z23 Encounter for immunization
CPT/HCPCS: 90471; 90714; 99283

== ENCOUNTER 2021-06-14 20:34 | Emergency (ER) | payer SELFPAY ==
[2021-06-14 22:23] LABS: SARS-COV-2 RT PCR NEGATIVE (NEGATIVE)
[2021-06-14] MEDS ORDERED: ACETAMINOPHEN 500 MG TAB ONE (23:26)
--- NOTE | 2021-06-14 23:50 | ER ---
Nurse's Notes [facility] Name: Darrick Alvarenga Age: 26 yrs Sex: Male : 1995 Arrival Date: 06/14/2021 Time: 20:38 Bed Treatment Private MD: Diagnosis: Fever, unspecified;Viral infection, unspecified Presentation: 06/14 21:15 Chief complaint: Patient states: Monday evening I started running fever and nauseous. ld1 Fever has been over 100, even with medicine. I have been dizzy, headache, night sweats, diarrhea and sore throat. Coronavirus screen: Client presents with at least one sign or symptom that may indicate coronavirus-19. Standard/surgical mask placed on the client. Ebola Screen: No symptoms or risks identified at this time. Initial Sepsis Screen: Does the patient meet any 2 criteria? No. Patient's initial sepsis screen is negative. Does the patient have a suspected source of infection? No. Patient's initial sepsis screen is negative. Risk Assessment: Do you want to hurt yourself or someone else? Patient reports no desire to harm self or others. Onset of symptoms was June 14, 2021. 21:15 Method Of Arrival: Ambulatory ld1 21:15 Acuity: NEELIMA 3 ld1 Triage Assessment: 21:17 General: Appears in no apparent distress. comfortable, Behavior is calm, cooperative, ld1 appropriate for age. Pain: Denies pain. EENT: No signs and/or symptoms were reported regarding the EENT system. Neuro: Level of Consciousness is awake, alert, obeys commands, Oriented to person, place, time, situation, Appropriate for age. Cardiovascular: Capillary refill < 3 seconds Patient's skin is warm and dry. Respiratory: Airway is patent Respiratory effort is even, unlabored, Respiratory pattern is regular, symmetrical. GI: Abdomen is flat, non-distended. : No signs and/or symptoms were reported regarding the genitourinary system. Derm: No signs and/or symptoms reported regarding the dermatologic system. Musculoskeletal: No signs and/or symptoms reported regarding the musculoskeletal system. Historical: - Allergies: 21:17 No Known Allergies; ld1 - Home Meds: 21:17 None [Active]; ld1 - PMHx: 21:17 Kidney stones; ld1 - PSHx: 21:17 None; ld1 - Immunization history:: Adult Immunizations up to date, Client reports having NOT received the Covid vaccine. - Social history:: Smoking status: Patient denies any tobacco usage or history of. Patient/guardian denies using alcohol. Screenin:54 Abuse screen: Denies threats or abuse. Nutritional screening: No deficits noted. bb Tuberculosis screening: No symptoms or risk factors identified. Fall Risk None identified. Assessment: 23:30 General: Appears in no apparent distress. uncomfortable, Behavior is calm, cooperative. bb Neuro: Level of Consciousness is awake, alert, obeys commands, Oriented to person, place, time, situation. Cardiovascular: Capillary refill < 3 seconds Patient's skin is warm and dry. Respiratory: Respiratory effort is even, unlabored, Respiratory pattern is regular. GI: No signs and/or symptoms were reported involving the gastrointestinal system. Derm: Skin is pink, warm \\T\\ dry. Musculoskeletal: Circulation, motion, and sensation intact. 06/15 00:06 Reassessment: Patient is alert, oriented x 3, equal unlabored respirations, skin bb warm/dry/pink. pt verbalized understanding of and agrees to plan of care discharge instructions given pt ambulated with steady gait to exit accompanied by family. Vital Signs: 06/14 21:15 BP 139 / 81; Pulse 102; Resp 18; Temp 100.6(O); Pulse Ox 99% on R/A; Weight 86.18 kg; ld1 Height 5 ft. 7 in. (170.18 cm); Pain 0/10; 23:31 BP 134 / 85; Pulse 105; Resp 16 S; Temp 102.3; Pulse Ox 99% on R/A; bb 06/15 00:05 Temp 100.1(O); bb 06/14 21:15 Body Mass Index 29.76 (86.18 kg, 170.18 cm) ld1 ED Course: 06/14 20:38 Patient arrived in ED. bp1 21:17 Triage completed. ld1 21:17 Arm band placed on right wrist. ld1 21:21 COVID-19/FLU A+B (Document "Date of Onset" if Symptomatic) Sent. ld1 21:21 Strep Sent. ld1 21:21 COVID-19/FLU A+B Sent. ld1 23:17 Charanjit Isidro PA is PHCP. jr8 23:17 Brandon Lin MD is Attending Physician. jr8 23:27 Karina Kelly, RN is Primary Nurse. bb 23:54 Patient has correct armband on for positive identification. Call light in reach. Adult bb w/ patient. 06/15 00:07 No provider procedures requiring assistance completed. Patient did not have IV access bb during this emergency room visit. Administered Medications: 06/14 23:27 Drug: Tylenol 1000 mg Route: PO; bb 06/15 00:06 Follow up: Response: Temperature is decreased bb Outcome: 06/14 23:50 Discharge ordered by . jr8 06/15 00:07 Discharged to home ambulatory, with family. bb Condition: stable Discharge instructions given to patient, Instructed on discharge instructions, follow up and referral plans. medication usage, Demonstrated understanding of instructions, follow-up care, medications, Prescriptions given X 1. 00:07 Patient left the ED. bb Signatures: Karina Kelly, RN RN Charanjit Mata PA PA jr8 Vicky Glasgow Lauren, RN RN ld1 Corrections: (The following items were deleted from the chart) 06/14 21:18 21:17 Allergies: Aspirin; ld1 ld1 21:18 21:17 Allergies: Aspirin; ld1 ld1
--- NOTE | 2021-06-14 23:50 | EDPHYS ---
Physician Documentation [facility] Name: Darrick Alvarenga Age: 26 yrs Sex: Male : 1995 Arrival Date: 06/14/2021 Time: 20:38 Bed Treatment Private MD: ED Physician Brandon Lin HPI: 06/14 23:33 This 26 yrs old Male presents to ER via Ambulatory with complaints of Fever, Diarrhea, jr8 Dizziness. 23:33 Onset: The symptoms/episode began/occurred acutely, yesterday. Modifying factors: there jr8 are no obvious modifying factors. Associated signs and symptoms: Pertinent positives: cough, nausea, sinus congestion. Severity of symptoms: At their worst the symptoms were mild in the emergency department the symptoms are unchanged. The patient has not experienced similar symptoms in the past. 23:36 The patient has not recently seen a physician. This is a 26-year-old male patient jr8 presented to the emergency room with a day and a half history of fever, nausea, diarrhea, headache, URI-like symptoms including cough. Denies recent sick contacts or travel.. Historical: - Allergies: 21:17 No Known Allergies; ld1 - Home Meds: 21:17 None [Active]; ld1 - PMHx: 21:17 Kidney stones; ld1 - PSHx: 21:17 None; ld1 - Immunization history:: Adult Immunizations up to date, Client reports having NOT received the Covid vaccine. - Social history:: Smoking status: Patient denies any tobacco usage or history of. Patient/guardian denies using alcohol. ROS: 23:36 Eyes: Negative for injury, pain, redness, and discharge, Neck: Negative for injury, jr8 pain, and swelling, Cardiovascular: Negative for chest pain, palpitations, and edema, Back: Negative for injury and pain, MS/Extremity: Negative for injury and deformity, Skin: Negative for injury, rash, and discoloration. 23:36 Constitutional: Positive for body aches, chills, fever. 23:36 Respiratory: Positive for cough, Negative for dyspnea on exertion, shortness of breath, sputum production, wheezing. 23:36 Abdomen/GI: Positive for nausea, diarrhea, Negative for abdominal pain, vomiting. 23:36 Neuro: Positive for headache. Exam: 23:36 Constitutional: This is a well developed, well nourished patient who is awake, alert, jr8 and in no acute distress. Eyes: Pupils equal round and reactive to light, extra-ocular motions intact. Lids and lashes normal. Conjunctiva and sclera are non-icteric and not injected. Cornea within normal limits. Periorbital areas with no swelling, redness, or edema. ENT: Nares patent. No nasal discharge, no septal abnormalities noted. Tympanic membranes are normal and external auditory canals are clear. Oropharynx with no redness, swelling, or masses, exudates, or evidence of obstruction, uvula midline. Mucous membranes moist. Neck: Trachea midline, no thyromegaly or masses palpated, and no cervical lymphadenopathy. Supple, full range of motion without nuchal rigidity, or vertebral point tenderness. No Meningismus. Respiratory: Lungs have equal breath sounds bilaterally, clear to auscultation and percussion. No rales, rhonchi or wheezes noted. No increased work of breathing, no retractions or nasal flaring. Abdomen/GI: Soft, non-tender, with normal bowel sounds. No distension or tympany. No guarding or rebound. No evidence of tenderness throughout. Back: No spinal tenderness. No costovertebral tenderness. Full range of motion. Skin: Warm, dry with normal turgor. Normal color with no rashes, no lesions, and no evidence of cellulitis. MS/ Extremity: Pulses equal, no cyanosis. Neurovascular intact. Full, normal range of motion. Neuro: Awake and alert, GCS 15, oriented to person, place, time, and situation. Cranial nerves II-XII grossly intact. Motor strength 5/5 in all extremities. Sensory grossly intact. 23:36 Cardiovascular: Rate: tachycardic, Rhythm: regular, Pulses: Pulses are 2+ in right radial artery and left radial artery. Heart sounds: normal, normal S1and S2, no S3 or S4, no murmur, no rub, no gallop, Edema: is not appreciated. Vital Signs: 21:15 BP 139 / 81; Pulse 102; Resp 18; Temp 100.6(O); Pulse Ox 99% on R/A; Weight 86.18 kg; ld1 Height 5 ft. 7 in. (170.18 cm); Pain 0/10; 23:31 BP 134 / 85; Pulse 105; Resp 16 S; Temp 102.3; Pulse Ox 99% on R/A; bb 06/15 00:05 Temp 100.1(O); bb 06/14 21:15 Body Mass Index 29.76 (86.18 kg, 170.18 cm) ld1 MDM: 06/14 23:21 Patient medically screened. jr8 23:48 Data reviewed: vital signs, nurses notes, lab test result(s), and as a result, I will jr8 discharge patient. Data interpreted: Pulse oximetry: on room air is 99 %. Interpretation: normal. Counseling: I had a detailed discussion with the patient and/or guardian regarding: the historical points, exam findings, and any diagnostic results supporting the discharge/admit diagnosis, lab results, the need for outpatient follow up, a family practitioner, to return to the emergency department if symptoms worsen or persist or if there are any questions or concerns that arise at home. ED course: Acute findings on physical exam. All swabs were negative. Recommended symptomatic treatment with antipyretics and to push fluids. We will put him on nausea medicine for the time being. He were to worsen over the next day or 2 to come back for further evaluation. Patient good with this at this time.. 06/14 21:20 Order name: COVID-19/FLU A+B (Document "Date of Onset" if Symptomatic) ld1 06/14 21:20 Order name: Strep; Complete Time: 01:12 ld1 06/14 21:21 Order name: COVID-19/FLU A+B; Complete Time: 23:22 EDNC 06/14 23:54 Order name: Throat Culture EDNC Administered Medications: 23:27 Drug: Tylenol 1000 mg Route: PO; bb 06/15 00:06 Follow up: Response: Temperature is decreased bb Disposition Summary: 06/14/21 23:50 Discharge Ordered Location: Home jr Problem: new jr8 Symptoms: have improved jr8 Condition: Stable jr8 Diagnosis - Fever, unspecified jr8 - Viral infection, unspecified jr8 Followup: jr8 - With: Private Physician - When: 1 - 2 days - Reason: Recheck today's complaints, Continuance of care, Re-evaluation by your physician Discharge Instructions: - Discharge Summary Sheet jr8 - Fever, Adult jr8 Forms: - Medication Reconciliation Form jr8 - Thank You Letter jr8 - Work release form bb - Antibiotic Education jr8 - Prescription Opioid Use jr8 Prescriptions: - Zofran 4 mg Oral Tablet - take 1 tablet by ORAL route every 12 hours As needed; 20 tablet; Refills: 0, jr8 Product Selection Permitted Addendum: 06/16/2021 09:20 Co-signature as Attending Physician, Brandon Lin MD I agree with the assessment and c ash plan of care. Signatures: Dispatcher [employer] EDBrandon Mckay MD MD cha Ballard, Brenda RN RN Charanjit Mata PA PA jr8 Leandra Hargrove RN RN ld1 Corrections: (The following items were deleted from the chart) 06/14 21:18 21:17 Allergies: Aspirin; ld1 ld1 21:17 Allergies: Aspirin; ld1 ld1
[2021-06-15 00:36] VITALS: O2SAT 99
[2021-06-15 00:38] VITALS: BP 134/85
[2021-06-15 00:39] VITALS: TEMP 100.1
== END 2021-06-15 00:07 | disposition home or self-care (01) ==
LOC: ER 20:34
DX: B34.9 Viral infection, unspecified (principal); Z20.822 Contact with and (suspected) exposure to COVID-19
CPT/HCPCS: 0240U; 87070; 87081; 99283

== ENCOUNTER 2024-08-26 10:51 | Emergency (ER) | payer SELFPAY ==
[2024-08-26 12:17] LABS: Specific Gravity 1.023 (1.005-1.030); Sqamous Epithelial None Seen /HPF (None Seen); Urine Bacteria None Seen /HPF (<20); Urine Bilirubin NEGATIVE (Negative); Urine Blood Negative (Negative); Urine Clarity Clear (Clear); Urine Color Light-Yellow (Yellow); Urine Crystals Unidentified Few /HPF (None Seen); Urine Culture Reflex Order NOT NEEDED; Urine Glucose NEGATIVE (Negative); Urine Ketones NEGATIVE (Negative); Urine Micro Reflex YN NO BILL MICROSCOPIC; Urine Nitrite NEGATIVE (Negative); Urine Protein NEGATIVE (Negative); Urine Urobilinogen Normal (Normal); Urine WBC <5 /HPF (<5)
--- NOTE | 2024-08-26 12:17 | RAD REPORT ---
EXAMINATION: CT ABDOMEN AND PELVIS WITHOUT CONTRAST CLINICAL INDICATION: Abdominal pain. Left flank pain TECHNIQUE: CT abdomen and pelvis was performed, as per department protocol. IV contrast and oral was not administered.Axial, sagittal and coronal reconstructions were obtained. One or more of the following dose reduction techniques were used: Automated exposure control, adjustment of the mA and/o r kV according to the patient size, and/or iterative reconstruction. Unless otherwise specified, incidental findings do not require dedicated imaging follow-up. [id number]. COMPARISON: 2019 FINDINGS: The lack of intravenous and oral contrast limits evaluation of solid organs, vessels and bowel. The liver, spleen, pancreas, adrenals and right kidney appear grossly normal Mild left hydronephrosis. Left ureter dilated. 6 mm calculus left UPJ. Normal appendix. Small umbilical hernia. No evidence of diverticulitis IMPRESSION: 6 mm calculus left UVJ results in mild left hydronephrosis
[2024-08-26 13:49] LABS: Absolute Eosinophils 0.3 K/uL (0-0.5); Absolute Lymphocytes (CBC) 2.1 K/uL (0.7-4.9); Absolute Monocytes 0.5 K/uL (0.1-1.3); Absolute Neutrophil 4.4 K/uL (1.8-8.0); Basophils % 0.6 % (0-1.3); Eosinophils % 4.4 % (0-4.4); Hematocrit 43.7 % (39.6-49.0); Hemoglobin 15.3 g/dL (13.6-17.9); MCH 31.7 pg (27.0-35.0); MCV 90.6 fL (80-100); MPV 8.6 fL (7.6-11.3); Monocytes % 6.4 % (3.3-12.3); Neutrophils % 60.6 % (41.7-73.7); Platelets 271 thou/uL (152-406); RBC Red Blood Cell Count 4.82 M/uL (4.33-5.43); Red Cell Distribution Width 11.9 % (12.1-15.2)
[2024-08-26 13:50] LABS: Anion Gap 5.9 mEq/L (5.0-15.0); Potassium 3.9 mEq/L (3.5-5.1)
--- NOTE | 2024-08-26 13:56 | ER ---
Nurse's Notes [facility] [place] Name: Darrick Alvarenga Age: 29 yrs Sex: Male : 1995 Arrival Date: 08/26/2024 Time: 10:51 Bed 17 Private MD: Diagnosis: Calculus of ureter Presentation: 08/26 11:21 Chief complaint: Patient states: Dysuria, lower abdominal pain, blood in urine for 3 ll1 weeks. No fevers. Coronavirus screen: Client denies travel out of the [place] in the last 14 days. At this time, the client does not indicate any symptoms associated with coronavirus-19. Ebola Screen: Patient denies travel to an Ebola-affected area in the 21 days before illness onset. Initial Sepsis Screen: Does the patient meet any 2 criteria? No. Patient's initial sepsis screen is negative. Does the patient have a suspected source of infection? No. Patient's initial sepsis screen is negative. Risk Assessment: Do you want to hurt yourself or someone else? Patient reports no desire to harm self or others. Onset of symptoms was August 07, 2024. 11:21 Method Of Arrival: Ambulatory ll1 11:21 Acuity: NEELIMA 3 ll1 Triage Assessment: 11:21 General: Appears uncomfortable, Behavior is calm, cooperative, appropriate for age. ll1 Pain: Complains of pain in abdomen Quality of pain is described as aching, crampy. : Reports burning with urination, cramping, pain with urination. Historical: - Allergies: 11:21 No Known Allergies; ll1 - Home Meds: 11:21 None [Active]; ll1 - PMHx: 11:21 Kidney stones; ll1 - PSHx: 11:21 None; ll1 - Immunization history:: Adult Immunizations up to date. - Infectious Disease History:: Denies. - Social history:: Smoking status: Patient denies any tobacco usage or history of. Screenin:12 [facility] ED Fall Risk Assessment (Adult) History of falling in the last 3 months, kj2 including since admission No falls in past 3 months (0 pts) Confusion or Disorientation No (0 pts) Intoxicated or Sedated No (0 pts) Impaired Gait No (0 pts) Mobility Assist Device Used No (0 pt) Altered Elimination No (0 pt) Score/Fall Risk Level 0 - 2 = Low Risk Maintained a safe environment, Hourly rounding (assess needs \T\ fall precautionary measures) done. Abuse screen: Denies threats or abuse. Denies injuries from another. Nutritional screening: No deficits noted. Tuberculosis screening: No symptoms or risk factors identified. Assessment: 13:54 Reassessment: Patient and/or family updated on plan of care and expected duration. Pain ll1 level reassessed. 14:11 Reassessment: Patient appears in no apparent distress at this time. Patient and/or kj2 family updated on plan of care and expected duration. Pain level reassessed. Patient is alert, oriented x 3, equal unlabored respirations, skin warm/dry/pink. Vital Signs: 11:21 BP 154 / 96; Pulse 82; Resp 17; Temp 97.9; Pulse Ox 100% ; Weight 83.91 kg; Height 5 ll1 ft. 7 in. ; Pain 5/10; 14:11 BP 148 / 88; Pulse 76; Resp 20; Temp 98.2; Pulse Ox 100% on R/A; kj2 11:21 Body Mass Index 28.97 (83.91 kg, 170.18 cm) ll1 11:21 Pain Scale: Adult ll1 ED Course: 10:54 Patient arrived in ED. im 10:57 Kendell Ashton MD is Attending Physician. ec2 11:21 Arm band placed on. ll1 11:23 Triage completed. ll1 11:48 CT Abd/Pelvis - Without Contrast In Process Unspecified. EDMS 13:32 BMP Sent. ty 13:32 CBC with Diff Sent. ty 13:54 Patient placed in an exam room, on a stretcher. ll1 14:03 Mounika Nunn, RN is Primary Nurse. kj2 14:13 Patient has correct armband on for positive identification. Provided Education on: kj2 medication regimen. 14:13 No provider procedures requiring assistance completed. IV discontinued, intact, kj2 bleeding controlled, No redness/swelling at site. Pressure dressing applied. Administered Medications: 14:11 Drug: Ketorolac IVP 15 mg IVP once Route: IVP; Site: left antecubital; kj2 14:11 Follow up: Response: Medication administered at discharge. kj2 Medication: 14:12 VIS not applicable for this client. kj2 Outcome: 13:55 Discharge ordered by . ec2 14:14 Discharged to home ambulatory, kj2 14:14 Condition: stable 14:14 Discharge instructions given to patient, Instructed on discharge instructions, follow up and referral plans. medication usage, Demonstrated understanding of instructions, follow-up care, medications, 14:19 Patient left the ED. kj2 Signatures: Dispatcher [employer] Asmita Walsh, RN RN ll1 hSraddha Rivera Edwin, MD MD ec2 Garrett Herbert Krystal, RN RN kj2
--- NOTE | 2024-08-26 13:56 | EDPHYS ---
Physician Documentation [facility] Name: Darrick Alvarenga Age: 29 yrs Sex: Male : 1995 Arrival Date: 08/26/2024 Time: 10:51 Bed 17 Private MD: ED Physician Kendell Ashton HPI: 08/26 11:28 This 29 yrs old Male presents to ER via Ambulatory with complaints of Urinary ec2 Problem - blood. 11:28 Patient arrives today for dysuria and hematuria onset of several days ago. Also ec2 intermittent left flank pain. History of kidney stones.. Historical: - Allergies: 11:21 No Known Allergies; ll1 - Home Meds: 11:21 None [Active]; ll1 - PMHx: 11:21 Kidney stones; ll1 - PSHx: 11:21 None; ll1 - Immunization history:: Adult Immunizations up to date. - Infectious Disease History:: Denies. - Social history:: Smoking status: Patient denies any tobacco usage or history of. ROS: 11:29 Constitutional: as per hpi ec2 Exam: 11:29 Constitutional: GEN: NAD Head: atraumatic Eyes: EOMI Ears: External ears are ec2 normal. CV: regular rate LUNGS: no respiratory distress ABD: non-distended, soft, nontender, guarding, not rigid, left CVA TTP minimal SKIN: no evidence of rashes MSK: no evidence of trauma Vital Signs: 11:21 BP 154 / 96; Pulse 82; Resp 17; Temp 97.9; Pulse Ox 100% ; Weight 83.91 kg; Height 5 ll1 ft. 7 in. ; Pain 5/10; 14:11 BP 148 / 88; Pulse 76; Resp 20; Temp 98.2; Pulse Ox 100% on R/A; kj2 11:21 Body Mass Index 28.97 (83.91 kg, 170.18 cm) ll1 11:21 Pain Scale: Adult ll1 MDM: 11:29 Data reviewed: vital signs, nurses notes. ED course: Patient arrives today for low ec2 dysuria and hematuria. Examination yields abdominal findings as above. Will obtain urine studies, CT imaging. Differential includes UTI, kidney stone.. 11:55 Medical Screening Exam initiated ec2 12:25 ED course: CT abdomen pelvis shows 6 mm UVJ stone.. ec2 08/26 11:26 Order name: CBC with Diff; Complete Time: 13:53 ec2 08/26 11:26 Order name: BMP; Complete Time: 13:53 ec2 08/26 11:26 Order name: UAM; Complete Time: 12:24 ec2 08/26 11:26 Order name: CT Abd/Pelvis - Without Contrast; Complete Time: 12:24 ec2 08/26 11:26 Order name: IV; Complete Time: 13:32 ec2 Administered Medications: 14:11 Drug: Ketorolac IVP 15 mg IVP once Route: IVP; Site: left antecubital; kj2 14:11 Follow up: Response: Medication administered at discharge. kj2 Disposition Summary: 08/26/24 13:55 Discharge Ordered Notes: Location: Home ec2 Condition: Stable ec2 Diagnosis - Calculus of ureter ec2 Followup: ec2 - With: Private Physician - When: - Reason: Re-evaluation by your physician Discharge Instructions: - Discharge Summary Sheet ec2 - Kidney Stones, [id number]-[id number] ec2 Forms: - Work release form bd - Medication Reconciliation Form ec2 - Antibiotic Education ec2 - Prescription Opioid Use ec2 - Patient Portal Instructions ec2 - Leadership Thank You Letter ec2 Prescriptions: - acetaminophen-codeine 300-30 mg Oral tablet - take 1 tablet ORAL route every 4 hours as needed for pain; 15 tablet; Refills: ec2 0, Product Selection Permitted - tamsulosin 0.4 mg Oral capsule - take 1 capsule ORAL route every 24 hours; 14 capsule; Refills: 0, Product ec2 Selection Permitted Signatures: Dispatcher [employer] Asmita Walsh, MARIA ELENA RN ll1 Kendell Ashton MD MD ec2 Mounika Nunn RN RN kj2 Corrections: (The following items were deleted from the chart) 11:27 11:27 CBC+H.LAB.BRZ ordered. EDMS EDMS 11: 11:27 BASIC METABOLIC PANEL+C.LAB.BRZ ordered. EDMS EDMS 11:27 11:27 Urinalysis W/Microscopic+U.LAB.BRZ ordered. EDMS EDMS 11:27 11:27 Abdomen Pelvis Wo Con+CT.RAD.BRZ ordered. EDMS EDMS
[2024-08-26] MEDS ORDERED: KETOROLAC 30 MG/ML INJ ONE (14:06)
[2024-08-26 14:42] VITALS: O2SAT 100
[2024-08-26 14:43] VITALS: BP 148/88; TEMP 98.2
== END 2024-08-26 14:19 | disposition home or self-care (01) ==
LOC: ER 10:51
DX: N20.1 Calculus of ureter (principal); Z87.442 Personal history of urinary calculi
CPT/HCPCS: 36415; 74176; 80048; 81001; 85025; 96374; 99284